=== PATIENT | female | born 1970 | race Caucasian/White ===

== ENCOUNTER 2016-04-24 23:51 | Inpatient (IN) | payer MEDICARE, MEDICAID ==
[2016-04-25] MEDS ORDERED: ZIPRASIDONE 20 MG VIAL IM STA (01:39)
--- NOTE | 2016-04-25 01:41 | ED ---
General Adult HPI - General Chief complaint: Psychiatric Symptoms Stated complaint: Mental Health-Petition Time Seen by Provider: 04/25/16 00:00 Source: patient, RN notes reviewed Mode of arrival: ambulatory Limitations: no limitations - History of Present Illness Initial comments: This is a 46-year-old female who presents to the emergency department with the police because she was making statements to her that she was suicidal. Patient refuses to tell me if she did or did not make those statements. Patient states she doesn't want to talk about it currently. Patient denies any drug use or alcohol use. Patient denies any physical complaints today. Patient states she will talk to her counselor but not to me. Patient denies headache patient denies any chest pain palpitations difficulty breathing shortness of breath. Patient denies abdominal pain patient denies nausea vomiting diarrhea. - Related Data Home Medications Medication Instructions Recorded Confirmed Albuterol Sulfate [Proair Hfa] 1 - 2 puff INHALATION Q6HR PRN 01/10/15 04/25/16 Budesonide/Formoterol Fumarate 2 puff INHALATION BID 01/10/15 04/25/16 [Symbicort 160-4.5 Mcg Inhaler] Omeprazole [PriLOSEC] 20 mg PO AC-BID 01/10/15 04/25/16 Loperamide [Imodium] 2 mg PO TID PRN 04/24/16 04/25/16 Allergies Allergy/AdvReac Type Severity Reaction Status Date / Time lorazepam [From Ativan] Allergy Hallucinati Verified 04/24/16 23:57 ons metronidazole [From Flagyl] Allergy Anaphylaxis Verified 04/24/16 23:57 Review of Systems ROS Statement: Those systems with pertinent positive or pertinent negative responses have been documented in the HPI. ROS Other: All systems not noted in ROS Statement are negative. Past Medical History Past Medical History: Asthma, Hypertension History of Any Multi-Drug Resistant Organisms: None Reported Past Surgical History: Orthopedic Surgery Additional Past Surgical History / Comment(s): nose, hand and vaginal Past Psychological History: Anxiety Smoking Status: Current every day smoker Past Alcohol Use History: None Reported Past Drug Use History: None Reported General Exam - General Exam Comments Initial Comments: GENERAL: Patient is well-developed and well-nourished. Patient is nontoxic and well- hydrated and is in no acute distress. ENT: Neck is soft and supple. No significant lymphadenopathy is noted. Oropharynx is clear. Moist mucous membranes. Neck has full range of motion without eliciting any pain. EYES: The sclera were anicteric and conjunctiva were pink and moist. Extraocular movements were intact and pupils were equal round and reactive to light. Eyelids were unremarkable. PULMONARY: Unlabored respirations. Good breath sounds bilaterally. No audible rales rhonchi or wheezing was noted. CARDIOVASCULAR: There is a regular rate and rhythm without any murmurs gallops or rubs. ABDOMEN: Soft and nontender with normal bowel sounds. No palpable organomegaly was noted. There is no palpable pulsatile mass. SKIN: Skin is clear with no lesions or rashes and otherwise unremarkable. NEUROLOGIC: Patient is alert and oriented x3. Cranial nerves II through XII are grossly intact. Motor and sensory are also intact. Normal speech, volume and content. Symmetrical smile. MUSCULOSKELETAL: Normal extremities with adequate strength and full range of motion. PSYCHIATRIC: Unable to evaluate since she will not answer my questions Limitations: no limitations Course Vital Signs 04/24/16 23:52 Temperature 99.3 F Pulse Rate 109 H Respiratory 18 Rate Blood Pressure 130/98 O2 Sat by Pulse 98 Oximetry Medical Decision Making - Lab Data Lab Results 04/25/16 04/25/16 Range/Units 00:05 00:05 Urine HCG, Qual Not Detected (Not Detectd) Urine Opiates Screen Not Detected (NotDetected) Ur Oxycodone Screen Not Detected (NotDetected) Urine Methadone Screen Not Detected (NotDetected) Ur Propoxyphene Screen Not Detected (NotDetected) Ur Barbiturates Screen Not Detected (NotDetected) U Tricyclic Antidepress Not Detected (NotDetected) Ur Phencyclidine Scrn Not Detected (NotDetected) Ur Amphetamines Screen Not Detected (NotDetected) U Methamphetamines Scrn Not Detected (NotDetected) U Benzodiazepines Scrn Not Detected (NotDetected) Urine Cocaine Screen Not Detected (NotDetected) U Marijuana (THC) Screen Not Detected (NotDetected) Disposition Clinical Impression: Suicidal ideation Disposition: ADMITTED IP TO THIS [facility] Time of Disposition: 01:41
[2016-04-25] MEDS: LORazepam 2 MG/ML SYRINGE IM STA ×2 (01:48→01:54)
[2016-04-25] MEDS ORDERED: ACETAMINOPHEN TAB 325 MG TAB PO PRN (02:50)
[2016-04-25] MEDS ORDERED: MAGNESIUM HYDROXIDE 2,400 MG/10 ML CUP PO PRN (02:50)
[2016-04-25] MEDS ORDERED: ZIPRASIDONE 20 MG VIAL IM PRN (02:50)
[2016-04-25] MEDS ORDERED: cloNIDine HCL 0.1 MG TAB PO ONE (04:10)
[2016-04-25] MEDS: ALBUTEROL INHALER 60 PUFF/8 GM INHALER INHALATION PRN ×4 (04:23→22:34)
[2016-04-25] MEDS: PANTOPRAZOLE 40 MG TABLET PO SCH ×2 (09:17→17:06)
[2016-04-25] MEDS: NICOTINE 14MG/24HR PATCH TRANSDERM SCH (09:55)
[2016-04-25] MEDS: SYMBICORT 160-4.5 MCG INHALER INHALATION SCH ×2 (12:08→17:15)
[2016-04-25] MEDS ORDERED: predniSONE 20 MG TAB PO SCH (16:00)
[2016-04-25] MEDS ORDERED: clonazePAM 0.5 MG TAB PO PRN (16:50)
[2016-04-25] MEDS: SERTRALINE 50 MG TAB PO SCH (17:06)
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
--- NOTE | 2016-04-25 18:43 | CONS ---
DATE OF CONSULTATION: The patient is a 46-year-old female admitted for suicidal ideation. ( ) Medicine was consulted regarding COPD exacerbation. The patient does smoke. The patient is significantly wheezing. The patient does use albuterol and ipratropium. Because of significant wheeze, I started on oral steroid and started her on taper. The patient also having cough with yellowish sputum production. Patient denied any fever, chills. Patient was complaining of ( ). Denied any orthopnea, PND. The patient denied any fever or chills. The patient does not appear to have any pneumonia clinically. REVIEW OF SYSTEMS: CONSTITUTIONAL: No fever, no malaise, no fatigue. HEENT: No recent visual problems or hearing problems. Denied any sore throat. CARDIOVASCULAR: No chest pain, orthopnea, PND, no palpitations, no syncope. PULMONARY: As described in history of present illness. GASTROINTESTINAL: No diarrhea, no nausea, no vomiting, no abdominal pain. Normoactive bowel sounds. NEUROLOGICAL: No headaches, no weakness, no numbness. HEMATOLOGICAL: Denies any bleeding or petechiae. GENITOURINARY: Denies any burning micturition, frequency, or urgency. MUSCULOSKELETAL/RHEUMATOLOGICAL: Denies any joint pain, swelling, or any muscle pain. ENDOCRINE: Denies any polyuria or polydipsia. The rest of the 14 point review of systems is negative. Home medications include: 1. Albuterol. 2. Budesonide. 3. Formoterol. 4. Omeprazole. 5. Loperamide. 6. Lorazepam. 7. Metronidazole. PAST MEDICAL HISTORY: Significant for COPD, hypertension, possibility of asthma and COPD, orthopedic surgery. SOCIAL HISTORY: The patient does smoke a pack per day. Denied any alcohol abuse or drug abuse. Patient does have anxiety disorder. FAMILY HISTORY: Significant for hypertension in the family. PHYSICAL EXAMINATION: Temperature 99.3, pulse of 109, respiratory rate of 18, blood pressure is 130/98, saturating at 98% on room air. GENERAL: The patient is alert and oriented x3, not in any acute distress. Well developed, well nourished. HEENT: Pupils are round and equally reacting to light. EOMI. No scleral icterus. No conjunctival pallor. Normocephalic, atraumatic. No pharyngeal erythema. No thyromegaly. CARDIOVASCULAR: S1 and S2 present. No murmurs, rubs, or gallops. PULMONARY: Patient does have significant wheezing bilaterally. No crackles are appreciated. ABDOMEN: Soft, nontender, nondistended, normoactive bowel sounds. No palpable organomegaly. MUSCULOSKELETAL: No joint swelling or deformity. EXTREMITIES: No cyanosis, clubbing, or pedal edema. NEUROLOGICAL: Gross neurological examination did not reveal any focal deficits. SKIN: No rashes. Urine drug screen is negative. No of the other lab data is available at this point of time. ASSESSMENT AND PLAN: 1. Chronic obstructive pulmonary disease with acute exacerbation. Patient is not requiring any oxygen at this point of time. Patient can stay in the psychiatric facility for that and I will start on systemic steroids and follow for one more day. If the patient improves symptomatically, we will sign off at the time. Patient is already on Symbicort. I also added ( ). Patient does have a little bit of bronchitis for which I added doxycycline for 5 days. 2. Severe depression and suicidal ideation, management as per primary services. 3. Gastroesophageal reflux disease for which Prilosec can be continued. Patient is not on any antihypertensives. I do not believe she requires any antihypertensives at this time either.
[2016-04-25] MEDS ORDERED: cloNIDine HCL 0.1 MG TAB PO STA (18:55)
[2016-04-25] MEDS: DOXYCYCLINE 50 MG CAP PO SCH (20:27)
[2016-04-26] MEDS: ALBUTEROL INHALER 60 PUFF/8 GM INHALER INHALATION PRN ×2 (06:19→21:17)
[2016-04-26] MEDS: SYMBICORT 160-4.5 MCG INHALER INHALATION SCH ×2 (09:34→21:17)
[2016-04-26] MEDS: NICOTINE 14MG/24HR PATCH TRANSDERM SCH (09:48)
[2016-04-26] MEDS: PANTOPRAZOLE 40 MG TABLET PO SCH ×4 (09:48→18:43)
[2016-04-26] MEDS: predniSONE 20 MG TAB PO SCH ×2 (09:49→09:52)
[2016-04-26] MEDS: SERTRALINE 50 MG TAB PO SCH ×3 (09:49→10:51)
[2016-04-26] MEDS: DOXYCYCLINE 50 MG CAP PO SCH ×4 (09:49→20:47)
[2016-04-26 10:55] LABS: Basophils # (A) 0.1 k/uL (0-0.2); Basophils % (A) 1 %; CH 31.3; CHCM 33.2; Eosinophils # (A) 0.2 k/uL (0-0.7); Eosinophils % (A) 3 %; HCT 42.7 % (34.0-46.0); HDW 2.07; HGB 13.7 gm/dL (11.4-16.0); Luc # (Auto) 0.15; Luc % (Auto) 2; Lymphocytes # (A) 1.6 k/uL (1.0-4.8); Lymphocytes % (A) 19 %; MCH 30.4 pg (25.0-35.0); MCHC 32.1 g/dL (31.0-37.0); MCV 94.7 fL (80.0-100.0); Mean Platelet Volume 7.8; Monocytes # (A) 0.5 k/uL (0-1.0); Monocytes % (A) 6 %; Neutrophils # (A) 5.5 k/uL (1.3-7.7); Neutrophils % (A) 69 %; RBC 4.51 m/uL (3.80-5.40); RDW 12.6 % (11.5-15.5); WBC (Perox) 8.38
[2016-04-26 11:05] LABS: ALT 43 U/L (9-52); AST 19 U/L (14-36); Alkaline Phosphatase 91 U/L (38-126); Anion Gap 11 mmol/L; Blood Urea Nitrogen 12 mg/dL (7-17); Calcium 9.9 mg/dL (8.4-10.2); Carbon Dioxide 28 mmol/L (22-30); Chloride 101 mmol/L (98-107); Glucose 100 mg/dL (74-99); Non-African American GFR(MDRD) >60 (>60 ml/min/1.73 sqM); Potassium 4.5 mmol/L (3.5-5.1); Sodium 140 mmol/L (137-145); Total Bilirubin 1.1 mg/dL (0.2-1.3)
--- NOTE | 2016-04-26 16:21 | P.PN ---
Progress Note - Text Interval history: Patient is found in her room lying in bed. She is seen with a mental health tech present. She is nonverbal during this examination. She does have her eyes opened slightly during one part of the examination then is noted to close them. Per history she was up and around at one point earlier during the day and did take her Zoloft after initially refusing it.. Per chart history did not take any Klonopin today. Mental status exam: She is found in her room lying in bed. She is seen with the mental health tech present. She is noted to have her eyes slightly opened during the exam and then closes them. Per history after I left the room she re- opened her eyes. She is nonverbal during this exam. She does not show any agitation. Plan: We'll maintain Zoloft as current and monitor for any medication side effects and monitor her response. At this time we'll put Klonopin on hold. Dr. Laughlin to initiate care this patient starting tomorrow. Patient will be encouraged to engage in the treatment milieu.
[2016-04-27 02:32] LABS: Appearance,Urine Cloudy (Clear); Bilirubin,Urine Negative (Negative); Glucose,Urine (UA) Negative (Negative); Ketones,Urine 3+ (Negative); Leukocyte Esterase,Urine Negative (Negative); Mucus,Urine Occasional /hpf; Nitrite,Urine Negative (Negative); Particle Count 8251; Protein,Urine Trace (Negative); RBC,Urine 16 /hpf (0-5); Specific Gravity,Urine 1.017 (1.001-1.035); Squamous Epithelial Cell,Urine 12 /hpf (0-4); UA Billing (MACRO vs. MICRO) MICRO; Urobilinogen,Urine <2.0 mg/dL (<2.0); WBC,Urine 1 /hpf (0-5)
[2016-04-27] MEDS: NICOTINE 14MG/24HR PATCH TRANSDERM SCH (08:28)
[2016-04-27] MEDS: PANTOPRAZOLE 40 MG TABLET PO SCH ×2 (08:28→18:36)
[2016-04-27] MEDS: DOXYCYCLINE 50 MG CAP PO SCH ×2 (08:28→21:33)
[2016-04-27] MEDS: SYMBICORT 160-4.5 MCG INHALER INHALATION SCH ×2 (08:43→21:22)
[2016-04-27] MEDS: ALBUTEROL INHALER 60 PUFF/8 GM INHALER INHALATION PRN (08:43)
[2016-04-27] MEDS: predniSONE 20 MG TAB PO SCH (09:43)
[2016-04-27] MEDS: SERTRALINE 50 MG TAB PO SCH (09:44)
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
[2016-04-27] MEDS ORDERED: METOPROLOL TARTRATE 25 MG TAB PO STA ×2 (20:18→21:42)
[2016-04-27] MEDS ORDERED: amLODIPine 5 MG TAB PO STA (20:18)
[2016-04-27 21:08] LABS: Appearance,Urine Cloudy (Clear); Bilirubin,Urine Negative (Negative); Glucose,Urine (UA) Negative (Negative); Ketones,Urine Negative (Negative); Leukocyte Esterase,Urine Negative (Negative); Mucus,Urine Rare /hpf; Nitrite,Urine Negative (Negative); Particle Count 5840; Protein,Urine Negative (Negative); RBC,Urine 7 /hpf (0-5); Specific Gravity,Urine 1.011 (1.001-1.035); Squamous Epithelial Cell,Urine 22 /hpf (0-4); UA Billing (MACRO vs. MICRO) MICRO; Urobilinogen,Urine <2.0 mg/dL (<2.0); WBC,Urine 1 /hpf (0-5)
--- NOTE | 2016-04-27 21:16 | PN ---
I evaluated the patient today because of her significant wheezing on my initial evaluation secondary to COPD exacerbation. Patient has significant improved symptoms of shortness of breath, and patient's wheezing has completely resolved. There were concerns about elevated blood pressures on and off. This is related to anxiety, I do not believe any intervention is necessary at this point of time. I do not recommend any p.r.n. antihypertensives or any scheduled antihypertensives at this point of time. Patient's blood pressure needs to be evaluated appropriately. REVIEW OF SYSTEMS: CARDIOVASCULAR: No chest pain, no orthopnea, no PND, no palpitations. PULMONARY: Denied any shortness of breath. No cough or hemoptysis. GASTROINTESTINAL: No diarrhea, nausea or vomiting. No abdominal pain. Normoactive bowel sounds. NEUROLOGIC: No headaches, no weakness, no numbness. Medications were reviewed. PHYSICAL EXAMINATION: VITAL SIGNS: Temperature 98.2, pulse of 80, respiratory rate of 16. Blood pressure is 161/81, but patient's lowest blood pressure was in the 140s yesterday. GENERAL: The patient is alert and oriented x3, not in any acute distress. Well developed, well nourished. HEENT: Pupils are round and equally reacting to light. EOMI. No scleral icterus. No conjunctival pallor. Normocephalic, atraumatic. No pharyngeal erythema. No thyromegaly. CARDIOVASCULAR: S1 and S2 present. No murmurs, rubs, or gallops. PULMONARY: Chest is clear to auscultation, no wheezing or crackles. ABDOMEN: Soft, nontender, nondistended, normoactive bowel sounds. No palpable organomegaly. EXTREMITIES: No cyanosis, clubbing, or pedal edema. NEUROLOGICAL: Gross neurological examination did not reveal any focal deficits. SKIN: No rashes ASSESSMENT AND PLAN: 1. Chronic obstructive pulmonary disease with minimal exacerbation; improved symptoms. Continue with systemic steroids, inhalational treatments. Follow the taper I ordered. 2. Tracheobronchitis; improved symptoms of tracheobronchitis as well. 3. Minimally elevated blood pressures, which does not warrant any scheduled or p.r.n. antihypertensives, secondary to anxiety. 4. Severe depression and suicidal ideation. 5. Gastroesophageal reflux disease, for which Prilosec can be continued. [facility]
[2016-04-27] MEDS ORDERED: ALPRAZolam 0.5 MG TAB PO STA (21:50)
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
[2016-04-28] MEDS: ALBUTEROL INHALER 60 PUFF/8 GM INHALER INHALATION PRN ×2 (08:58→20:48)
[2016-04-28] MEDS: SYMBICORT 160-4.5 MCG INHALER INHALATION SCH ×2 (08:58→20:48)
[2016-04-28] MEDS: NICOTINE 14MG/24HR PATCH TRANSDERM SCH (09:23)
[2016-04-28] MEDS: predniSONE 20 MG TAB PO SCH (09:24)
[2016-04-28] MEDS: PANTOPRAZOLE 40 MG TABLET PO SCH ×2 (09:24→17:11)
[2016-04-28] MEDS: DOXYCYCLINE 50 MG CAP PO SCH ×2 (09:24→20:08)
[2016-04-28] MEDS: SERTRALINE 50 MG TAB PO SCH (09:24)
[2016-04-28] MEDS: METOPROLOL TARTRATE 25 MG TAB PO SCH ×2 (10:19→20:08)
[2016-04-28] MEDS: MAG HYDROX/AL HYDROX/SIMETH 30 ML CUP PO PRN (22:09)
[2016-04-29] MEDS: NICOTINE 14MG/24HR PATCH TRANSDERM SCH (08:24)
[2016-04-29] MEDS: predniSONE 10 MG TAB PO SCH (08:25)
[2016-04-29] MEDS: METOPROLOL TARTRATE 25 MG TAB PO SCH ×2 (08:25→20:28)
[2016-04-29] MEDS: PANTOPRAZOLE 40 MG TABLET PO SCH ×2 (08:26→16:33)
[2016-04-29] MEDS: DOXYCYCLINE 50 MG CAP PO SCH ×2 (08:27→20:27)
[2016-04-29] MEDS: SERTRALINE 50 MG TAB PO SCH (08:30)
[2016-04-29] MEDS: SYMBICORT 160-4.5 MCG INHALER INHALATION SCH ×2 (09:22→21:38)
--- NOTE | 2016-04-29 11:28 | P.PN ---
Progress Note - Text Interval history: The patient is found in her room she follows me to an interview room. She reports that she would like to be discharged as soon as possible. She reports that her mood is improved she is not feeling suicidal. Staff report that her participation in group has been limited. We have had a suspicion that she may be experiencing some symptoms of psychosis but she has been fairly guarded and not discussing them. She does state that she feels that people here don't like her because she is not a nice person. She has not been demonstrating any agitated behavior. She does have a family meeting plan for this afternoon with her . Her has informed social work already that he does not feel that the patient is at baseline. The patient has complied with the Zoloft today. We discussed possibly augmenting it with Abilify but she does not wish to pursue other medication. Mental status exam: The patient is seated calmly in the chair eye contact is appropriate she has patches of alopecia bilaterally on her head. She reports her mood is "fine" she maintains a bland affect. Speech is fluent mainly responsive to questions asked. There is no pressured speech. She reports no suicidal or homicidal ideation. She does present guarded. Insight and judgment limited. There may be evidence of psychosis, paranoid nature. There is no psychomotor agitation or slowing. There is no verbal or physical aggressiveness. She is easily directable. Cognitively she does have a history of a learning disorder. She is oriented to person place day of the week and year. She is able to identify that this is the first month of the year but cannot name the first month of the year. She was able to register 3 words and repeat them back after delay of approximately 3-4 minutes she spontaneously recalled 1 of those words he got another with a verbal cue and was able to recall the third word with multiple choice cue. She has a diminished ability to abstract when given proverbs and her fund of knowledge is limited. She was unsuccessful in naming 5 major cities [place]. Plan: The patient will continue on the Zoloft we may need to augment with Abilify. She is not willing to pursue another medication at this time. We will await the results of her family meeting. We will monitor her for safety and encourage her participation in the milieu. Vital signs reviewed. She is not appropriate for discharge to the mental health unit today.
[2016-04-29] MEDS ORDERED: ALPRAZolam 0.5 MG TAB PO STA (20:36)
[2016-04-29] MEDS: ALBUTEROL INHALER 60 PUFF/8 GM INHALER INHALATION PRN (21:38)
[2016-04-30] MEDS: DOXYCYCLINE 50 MG CAP PO SCH ×2 (08:51→20:53)
[2016-04-30] MEDS: METOPROLOL TARTRATE 25 MG TAB PO SCH ×2 (08:51→20:53)
[2016-04-30] MEDS: PANTOPRAZOLE 40 MG TABLET PO SCH ×2 (08:51→16:50)
[2016-04-30] MEDS: NICOTINE 14MG/24HR PATCH TRANSDERM SCH (08:52)
[2016-04-30] MEDS: predniSONE 10 MG TAB PO SCH (08:52)
[2016-04-30] MEDS: SERTRALINE 50 MG TAB PO SCH (08:52)
[2016-04-30] MEDS: ALBUTEROL INHALER 60 PUFF/8 GM INHALER INHALATION PRN ×2 (10:00→22:04)
[2016-04-30] MEDS: SYMBICORT 160-4.5 MCG INHALER INHALATION SCH ×2 (10:01→22:06)
--- NOTE | 2016-04-30 10:20 | P.PN ---
Progress Note - Text Interval history: The patient is found in the hallway she follows me to an interview room. She states that she did attend some groups yesterday and found them beneficial. The family meeting was held involving her and those notes were reviewed from social work. Her indicated that the patient still was not ready for discharge as she did not appear to be at baseline function. He expressed concern regarding her depressed mood and suicidal thoughts. The patient seemed to have a different perception of the meeting and felt that she was ready to go home and that things will be fine and they will attend marital counseling. Mental status exam: The patient is alert she seated calmly she tolerates the interview briefly and then asked to leave. Eye contact is staring in nature. She has visible patches of alopecia on her head bilaterally. She reports her mood is improving affect is constricted. She is endorsing no hallucinations or specific delusions however some delusional thought me persist. Speech is fluent mainly responsive to questions asked. Thought process is linear in that only brief answers are provided. Again she does appear guarded. Insight and judgment limited. She is demonstrating no verbal or physical aggressiveness. She is endorsing no acute suicidal ideation but it does appear she is potentially underreporting symptoms to facilitate a discharge. Plan: The patient will continue on the Zoloft as written we will consider titrating the dose. Again we will consider augmentation with Abilify if needed. We will continue to monitor her for safety and encourage her participation in the milieu. Vital signs reviewed. She requires continued inpatient psychiatric care at this time for safety concern.
[2016-04-30] MEDS ORDERED: ALPRAZolam 0.5 MG TAB PO STA (22:01)
[2016-05-01] MEDS: ALBUTEROL INHALER 60 PUFF/8 GM INHALER INHALATION PRN ×2 (07:57→20:42)
[2016-05-01] MEDS: SYMBICORT 160-4.5 MCG INHALER INHALATION SCH ×2 (07:57→20:42)
[2016-05-01] MEDS: NICOTINE 14MG/24HR PATCH TRANSDERM SCH (09:32)
[2016-05-01] MEDS: PANTOPRAZOLE 40 MG TABLET PO SCH ×2 (09:32→16:54)
[2016-05-01] MEDS: SERTRALINE 50 MG TAB PO SCH (09:33)
[2016-05-01] MEDS: METOPROLOL TARTRATE 25 MG TAB PO SCH ×2 (09:33→21:18)
[2016-05-01] MEDS: predniSONE 10 MG TAB PO SCH (09:34)
--- NOTE | 2016-05-01 09:51 | P.PN ---
Progress Note - Text Interval history: The patient is found in the hallway she follows me to an interview room. The patient reports that she is fine and would like to be discharged. She continues to appear strange or bizarre to staff at times. There continues to be times where we feel she is experiencing symptoms of psychosis but she has not reporting those. I do feel she is underreporting to facilitate a discharge. While here on the mental health unit she has reported that she feels she is , and has also reported that everybody here doesn' t like her for unspecified reasons. We discussed maintain in the Zoloft and augmenting with Abilify. Mental status exam: The patient is seated calmly hygiene grooming are fair. Eye contact can be staring at time and appears blank. She has noticeable patches of alopecia bilaterally on her head. She continues to lack insight into her presenting symptoms her current affect and behavior. Judgment appears impaired. It does appear that she may be experiencing symptoms of psychosis that she has not reporting. There appears to be some very mild thought blocking at times. She demonstrates no verbal or physical aggressiveness. She expresses concerned about not being discharged and then other times appears apathetic. Plan: The patient will continue on the Zoloft we will augment with Abilify 2 mg daily. We will monitor her for safety and symptoms of psychosis. Vital signs reviewed. She is encouraged to attend groups.
[2016-05-01] MEDS: ARIPiprazole 2 MG TAB PO SCH (11:16)
[2016-05-02] MEDS: ARIPiprazole 2 MG TAB PO SCH (08:06)
[2016-05-02] MEDS: PANTOPRAZOLE 40 MG TABLET PO SCH (08:06)
[2016-05-02] MEDS: SERTRALINE 50 MG TAB PO SCH (08:06)
[2016-05-02] MEDS: METOPROLOL TARTRATE 25 MG TAB PO SCH ×2 (08:07→20:37)
[2016-05-02] MEDS: NICOTINE 14MG/24HR PATCH TRANSDERM SCH (08:07)
[2016-05-02] MEDS: SYMBICORT 160-4.5 MCG INHALER INHALATION SCH ×2 (09:55→15:20)
[2016-05-02] MEDS: MAG HYDROX/AL HYDROX/SIMETH 30 ML CUP PO PRN (10:24)
--- NOTE | 2016-05-02 11:04 | P.PN ---
Progress Note - Text Interval history: The patient is found in her room she follows me to an interview room. She feels her mood is improving but expresses concern about her medication. We again discussed the purpose of the Zoloft and Abilify. We reviewed potential benefits and side effects of both medications. We reviewed the albuterol protonic's and Symbicort. She does not feel that the Protonix is as effective as her Prilosec. We discussed making a change to that medication. She reports daily phone conversations with her and she hopes to reconcile with him return home and engage in outpatient marital counseling. It appears that she has complied with the Zoloft in the Abilify. Mental status exam: The patient is seated calmly eye contact is appropriate. She expresses concern regarding her medications but does seem to respond at least briefly to education and reassurance. Affect is typically blunted she demonstrated some mild range today. Again she endorses no symptoms as she is underreporting and appears guarded. She demonstrates no verbal or physical aggressiveness. She is isolating in her room versus attending groups so far this morning. Insight and judgment limited. Plan: The patient will continue on the Zoloft and Abilify as written. We will discontinue the Protonix and initiate Pepcid 20 mg twice daily for tomorrow. We will monitor her for safety, provide reality orientation when possible, vital signs reviewed. She requires continued psychiatric hospitalization. She plans on having her visit over the weekend we will look for his input regarding those visits to discuss her current status versus baseline function.
[2016-05-02] MEDS: ALBUTEROL INHALER 60 PUFF/8 GM INHALER INHALATION PRN (15:20)
[2016-05-03] MEDS: MAG HYDROX/AL HYDROX/SIMETH 30 ML CUP PO PRN ×2 (00:41→09:16)
[2016-05-03] MEDS ORDERED: cloNIDine HCL 0.1 MG TAB PO STA (00:47)
[2016-05-03] MEDS ORDERED: ALPRAZolam 0.5 MG TAB PO STA (00:48)
[2016-05-03 00:50] VITALS: TEMP 97.9
[2016-05-03] MEDS: METOPROLOL TARTRATE 25 MG TAB PO SCH ×2 (09:11→21:39)
[2016-05-03] MEDS: ARIPiprazole 2 MG TAB PO SCH (09:11)
[2016-05-03] MEDS: NICOTINE 14MG/24HR PATCH TRANSDERM SCH (09:12)
[2016-05-03] MEDS: FAMOTIDINE 20 MG TAB PO SCH ×3 (09:12→21:39)
[2016-05-03] MEDS: SERTRALINE 50 MG TAB PO SCH (09:13)
[2016-05-03] MEDS: ALBUTEROL INHALER 60 PUFF/8 GM INHALER INHALATION PRN ×2 (09:27→14:42)
[2016-05-03] MEDS: SYMBICORT 160-4.5 MCG INHALER INHALATION SCH ×3 (09:27→22:12)
--- NOTE | 2016-05-03 10:41 | P.PN ---
Progress Note - Text Interval history: The patient is found in her room she follows me to an interview room. She voices some concern regarding her blood pressure elevating. We did give her Xanax and Catapres. We will contact the medical team regarding any further recommendations for an antihypertensive agent. She is on metoprolol. She states that her mood is improving. She had a good visit with her yesterday. She has been complying with the Zoloft and Abilify. Mental status exam: The patient is alert she seated calmly in her chair eye contact is appropriate. She reports her moods improving her affect was more appropriately animated. There was no thought blocking. She is endorsing no homicidal thoughts she is reporting no hallucinations. Insight and judgment appear to be slowly improving as she has been complying with medication recommendations. She demonstrates no verbal or physical aggressiveness. She remains oriented to person place and date. Hygiene grooming adequate. Plan: The patient will continue on her current medication we will have social work contact her regarding his most recent visit. We will continue to monitor for safety and encourage her participation in the milieu.
[2016-05-04] MEDS: MAG HYDROX/AL HYDROX/SIMETH 30 ML CUP PO PRN (07:48)
[2016-05-04] MEDS: FAMOTIDINE 20 MG TAB PO SCH (08:50)
[2016-05-04] MEDS: ARIPiprazole 2 MG TAB PO SCH (08:50)
[2016-05-04] MEDS: SERTRALINE 50 MG TAB PO SCH (08:50)
[2016-05-04] MEDS: NICOTINE 14MG/24HR PATCH TRANSDERM SCH (08:50)
[2016-05-04] MEDS: METOPROLOL TARTRATE 25 MG TAB PO SCH (08:51)
[2016-05-04 08:56] VITALS: BP 136/87; PULSE 73; RESP 18
[2016-05-04] MEDS: SYMBICORT 160-4.5 MCG INHALER INHALATION SCH (09:06)
[2016-05-04] MEDS: ALBUTEROL INHALER 60 PUFF/8 GM INHALER INHALATION PRN (09:06)
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
== END 2016-05-04 11:03 | disposition home or self-care (01) | DRG 885 ==
LOC: EC 23:51 → 3MHU 04-25 02:49
PROVIDERS: ADMIT Psychiatry & Neurology Psychiatry; ATTEND Psychiatry & Neurology Psychiatry
DX: F33.3 Major depressive disorder, recurrent, severe with psychotic symptoms (principal); R45.851 Suicidal ideations; J44.0 Chronic obstructive pulmonary disease with (acute) lower respiratory infection; J44.1 Chronic obstructive pulmonary disease with (acute) exacerbation; J20.9 Acute bronchitis, unspecified; I10 Essential (primary) hypertension; F41.1 Generalized anxiety disorder; F17.210 Nicotine dependence, cigarettes, uncomplicated; J45.909 Unspecified asthma, uncomplicated; K21.9 Gastro-esophageal reflux disease without esophagitis; Z81.8 Family history of other mental and behavioral disorders; Z82.49 Family history of ischemic heart disease and other diseases of the circulatory system; Z91.5 Personal history of self-harm; Z79.899 Other long term (current) drug therapy
CPT/HCPCS: 80053; 80306; 81001; 81025; 82075; 84443; 84484; 85025; 93005; 94640; 96372; 99285

== ENCOUNTER 2016-11-17 18:10 | Emergency (ER) | payer MEDICARE, OTHER ==
[2016-11-17 18:14] VITALS: BP 159/85; PULSE 84; RESP 18; TEMP 97.3
--- NOTE | 2016-11-17 18:38 | ED ---
ENT HPI - General Chief complaint: ENT Stated complaint: Sore throat Time Seen by Provider: 11/17/16 18:15 Source: patient, RN notes reviewed Mode of arrival: ambulatory Limitations: no limitations - History of Present Illness Initial comments: Patient is a 46 female presents emergency room for evaluation of throat pain. Patient states she had thrush about a month ago and was prescribed nystatin should medication about a week ago and her symptoms have returned. Patient states that she does use Spiriva daily. Patient states she has white spots on the roof of her mouth and over her tongue. Patient states it hurts to swallow. Patient denies fevers or chills. Patient has nausea vomiting. Patient is headache or dizziness. Patient denies trouble swallowing. - Related Data Home Medications Medication Instructions Recorded Confirmed Albuterol Sulfate [Proair Hfa] 1 - 2 puff INHALATION RT-Q6H PRN 01/10/15 Budesonide/Formoterol Fumarate 2 puff INHALATION RT-BID 01/10/15 11/17/16 [Symbicort 160-4.5 Mcg Inhaler] Omeprazole [PriLOSEC] 20 mg PO AC-BID PRN 01/10/15 11/17/16 Albuterol Nebulized [Ventolin 2.5 mg INHALATION RT-BID PRN 11/17/16 11/17/16 Nebulized] Ascorbic Acid [Vitamin C] 500 mg PO DAILY 11/17/16 11/17/16 Multivitamins, Thera [Multivitamin 1 tab PO DAILY 11/17/16 11/17/16 (formulary)] Previous Rx's Medication Instructions Recorded Nystatin 100,000 Unit/ml Susp 5 ml PO QID 10 Days 11/17/16 [Mycostatin Oral Susp] Allergies Allergy/AdvReac Type Severity Reaction Status Date / Time metronidazole [From Flagyl] Allergy Rash/Hives Verified 11/17/16 18:30 amlodipine AdvReac Rapid Verified 11/17/16 18:30 Heart Rate lorazepam [From Ativan] AdvReac Suicidal Verified 11/17/16 18:30 Thoughts Review of Systems ROS Statement: Those systems with pertinent positive or pertinent negative responses have been documented in the HPI. ROS Other: All systems not noted in ROS Statement are negative. Past Medical History Past Medical History: Asthma, Hypertension History of Any Multi-Drug Resistant Organisms: None Reported Past Surgical History: Orthopedic Surgery Additional Past Surgical History / Comment(s): nose, hand and vaginal Past Psychological History: Anxiety Smoking Status: Current every day smoker Past Alcohol Use History: None Reported Past Drug Use History: None Reported General Exam - General Exam Comments Initial Comments: Sitting in exam room, no distress. Limitations: no limitations General appearance: alert, in no apparent distress Head exam: Present: atraumatic, normocephalic, normal inspection Eye exam: Present: normal appearance Expanded Mouth exam: Present: other (white plaques over hard pallet and tongue) Neck exam: Present: normal inspection Respiratory exam: Absent: respiratory distress Extremities exam: Present: normal inspection Back exam: Present: normal inspection Neurological exam: Present: alert, oriented X3 Psychiatric exam: Present: normal affect, normal mood Skin exam: Present: warm, dry, intact, normal color. Absent: rash Course Vital Signs 11/17/16 18:11 Temperature 97.3 F L Pulse Rate 84 Respiratory 18 Rate Blood Pressure 159/85 O2 Sat by Pulse 99 Oximetry Medical Decision Making - Medical Decision Making Patient is a 46-year-old female presents to the emergency room for evaluation of throat pain. Patient states she has a history of oral thrush. Symptoms consistent with oral candidiasis. Will send patient home with swish and swallow nystatin suspension. Advised patient to follow-up with primary care provider for reevaluation. Patient states she understands everything that was discussed with her. Return parameters discussed. Disposition Clinical Impression: Oral candidiasis Disposition: HOME SELF-CARE Condition: Good Instructions: Oral Candidiasis (ED) Additional Instructions: Take medications as directed. Please follow up with primary care provider in 1- 2 days. If any new symptom arises or symptoms worsen, return to ER as soon as possible. Prescriptions: Nystatin 100,000 Unit/ml Susp [Mycostatin Oral Susp] 5 ml PO QID 10 Days Referrals: Antonina Chapin MD [Primary Care Provider] - 1-2 days Time of Disposition: 18:34
== END 2016-11-17 18:59 | disposition home or self-care (01) ==
LOC: EC 18:10
DX: B37.0 Candidal stomatitis (principal); J45.909 Unspecified asthma, uncomplicated; F17.200 Nicotine dependence, unspecified, uncomplicated; Z88.1 Allergy status to other antibiotic agents; Z88.8 Allergy status to other drugs, medicaments and biological substances; Z79.51 Long term (current) use of inhaled steroids; Z79.899 Other long term (current) drug therapy
CPT/HCPCS: 99282

== ENCOUNTER 2017-01-17 12:59 | Emergency (ER) | payer MEDICARE, OTHER ==
[2017-01-17] MEDS ORDERED: HYDROmorphone 1 MG/ML 1 ML SYRINGE IVP STA (14:51)
[2017-01-17] MEDS ORDERED: ONDANSETRON 4 MG/2 ML VIAL IVP STA (14:51)
[2017-01-17] MEDS ORDERED: SODIUM CHLORIDE 0.9% 1,000 ML IV STA (14:51)
--- NOTE | 2017-01-17 14:55 | ED ---
General Adult HPI - General Chief complaint: Urogenital Stated complaint: Abd Pain, Blood in Urine Time Seen by Provider: 01/17/17 14:40 Source: patient, RN notes reviewed Mode of arrival: ambulatory Limitations: no limitations - History of Present Illness Initial comments: 47-year-old female presents to the emergency department with a chief complaint of blood in the urine. She has been having pain at her urethra site for the past 2 days but today she woke up with blood in the urine. She does admit to history of UTIs. She also having some left-sided flank pain with this. Patient states that she's had nausea without vomiting. Patient denies any high fevers. Patient states she does not have a history of kidney stones however her mother does. Patient was concerned due to her symptoms so she thought that she should be evaluated.Patient denies any recent fever, chills, shortness of breath, chest pain, back pain, vomiting, numbness or tingling, constipation or diarrhea, headaches or visual changes, or any other current symptoms. - Related Data Home Medications Medication Instructions Recorded Confirmed Albuterol Sulfate [Proair Hfa] 1 - 2 puff INHALATION RT-Q6H PRN 01/10/15 Budesonide/Formoterol Fumarate 2 puff INHALATION RT-BID 01/10/15 01/17/17 [Symbicort 160-4.5 Mcg Inhaler] Omeprazole [PriLOSEC] 20 mg PO DAILY PRN 01/10/15 01/17/17 Albuterol Nebulized [Ventolin 2.5 mg INHALATION RT-BID PRN 11/17/16 01/17/17 Nebulized] Cetirizine HCl [Zyrtec] 10 mg PO DAILY PRN 01/17/17 01/17/17 Ranitidine HCl [Zantac] 150 mg PO BID PRN 01/17/17 01/17/17 Previous Rx's Medication Instructions Recorded Ciprofloxacin HCl [Cipro] 500 mg PO Q12HR 7 Days 01/17/17 Phenazopyridine [Pyridium] 100 mg PO TID #6 tablet 01/17/17 Allergies Allergy/AdvReac Type Severity Reaction Status Date / Time metronidazole [From Flagyl] Allergy Rash/Hives Verified 01/17/17 15:03 amlodipine AdvReac Rapid Verified 01/17/17 15:03 Heart Rate lorazepam [From Ativan] AdvReac Suicidal Verified 01/17/17 15:03 Thoughts Review of Systems ROS Statement: Those systems with pertinent positive or pertinent negative responses have been documented in the HPI. ROS Other: All systems not noted in ROS Statement are negative. Past Medical History Past Medical History: Asthma, Hypertension History of Any Multi-Drug Resistant Organisms: None Reported Past Surgical History: Orthopedic Surgery Additional Past Surgical History / Comment(s): nose, hand and vaginal Past Psychological History: Anxiety Smoking Status: Current every day smoker Past Alcohol Use History: None Reported Past Drug Use History: None Reported General Exam - General Exam Comments Initial Comments: General: The patient is awake and alert, in no distress, and does not appear acutely ill. Eye: Pupils are equal, round and reactive to light, extra-ocular movements are intact; there is normal conjunctiva bilaterally. No signs of icterus. Ears, nose, mouth and throat: There are moist mucous membranes and no oral lesions. Neck: The neck is supple, there is no tenderness. Cardiovascular: There is a regular rate and rhythm. No murmur, rub or gallop is appreciated. Respiratory: Lungs are clear to auscultation, respirations are non-labored, breath sounds are equal. No wheezes, stridor, rales, or rhonchi. Gastrointestinal: Soft, non-distended, left-sided abdominal tenderness without masses or organomegaly noted. There is no rebound or guarding present. No CVA tenderness. Bowel sounds are unremarkable. Back: There is no tenderness to palpation in the midline. There is no obvious deformity. No rashes noted. Musculoskeletal: Normal ROM, no tenderness, There is no pedal edema. There is no calf tenderness or swelling. Sensation intact. Pulses equal bilaterally 2+. Neurological: CN II-XII intact, There are no obvious motor or sensory deficits. Coordination appears grossly intact. Speech is normal. Skin: Skin is warm and dry and no rashes or lesions are noted. Psychiatric: Cooperative, appropriate mood & affect, normal judgment. Limitations: no limitations Course Vital Signs 01/17/17 13:15 Temperature 98 F Pulse Rate 89 Respiratory 20 Rate Blood Pressure 210/111 O2 Sat by Pulse 98 Oximetry Medical Decision Making - Medical Decision Making 47-year-old female presents for left-sided abdominal pain with blood in the urine. At this time patient's lab work is reviewed and reviewed as well as CAT scan. We did inform her of the left ovarian cyst. We did discuss follow-up with her doctor we will start her antibiotics. Patient all questions have been answered. This time we will discharge the patient. - Lab Data Result diagrams: 01/17/17 15:12 01/17/17 15:12 Lab Results 01/17/17 01/17/17 01/17/17 Range/Units 15:12 15:12 15:12 WBC 11.1 H (3.8-10.6) k/uL RBC 4.63 (3.80-5.40) m/uL Hgb 14.5 (11.4-16.0) gm/dL Hct 44.0 (34.0-46.0) % MCV 95.0 (80.0-100.0) fL MCH 31.3 (25.0-35.0) pg MCHC 32.9 (31.0-37.0) g/dL RDW 13.6 (11.5-15.5) % Plt Count 295 (150-450) k/uL Neutrophils % 74 % Lymphocytes % 17 % Monocytes % 4 % Eosinophils % 3 % Basophils % 1 % Neutrophils # 8.2 H (1.3-7.7) k/uL Lymphocytes # 1.9 (1.0-4.8) k/uL Monocytes # 0.4 (0-1.0) k/uL Eosinophils # 0.4 (0-0.7) k/uL Basophils # 0.1 (0-0.2) k/uL Sodium 140 (137-145) mmol/L Potassium 3.9 (3.5-5.1) mmol/L Chloride 105 (98-107) mmol/L Carbon Dioxide 26 (22-30) mmol/L Anion Gap 9 mmol/L BUN 7 (7-17) mg/dL Creatinine 0.60 (0.52-1.04) mg/dL Est GFR (MDRD) Af Amer >60 (>60 ml/min/1.73 sqM) Est GFR (MDRD) Non-Af >60 (>60 ml/min/1.73 sqM) Glucose 82 (74-99) mg/dL Calcium 9.5 (8.4-10.2) mg/dL Total Bilirubin 0.4 (0.2-1.3) mg/dL AST 16 (14-36) U/L ALT 35 (9-52) U/L Alkaline Phosphatase 75 (38-126) U/L Total Protein 7.3 (6.3-8.2) g/dL Albumin 4.3 (3.5-5.0) g/dL Amylase 40 (30-110) U/L Lipase 41 (23-300) U/L Urine Color Colorless Urine Appearance Clear (Clear) Urine pH 6.5 (5.0-8.0) Ur Specific Clyde 1.001 (1.001-1.035) Urine Protein Negative (Negative) Urine Glucose (UA) Negative (Negative) Urine Ketones Negative (Negative) Urine Blood Moderate H (Negative) Urine Nitrite Negative (Negative) Urine Bilirubin Negative (Negative) Urine Urobilinogen <2.0 (<2.0) mg/dL Ur Leukocyte Esterase Negative (Negative) Urine RBC 1 (0-5) /hpf Urine WBC 2 (0-5) /hpf Ur Squamous Epith Cells 1 (0-4) /hpf Urine Bacteria Rare H (None) /hpf - Radiology Data Radiology results: report reviewed, image reviewed Disposition Clinical Impression: Urinary tract infection, Left ovarian cyst Disposition: HOME SELF-CARE Condition: Stable Instructions: Urinary Tract Infection in Women (ED) Additional Instructions: Please use medication as discussed. Please follow up with family doctor if symptoms have not improved over the next two days. Please return to the emergency room if your symptoms increase or worsen or for any other concerns. Prescriptions: Ciprofloxacin HCl [Cipro] 500 mg PO Q12HR 7 Days Phenazopyridine [Pyridium] 100 mg PO TID #6 tablet Referrals: Antonina Chapin MD [Primary Care Provider] - 1-2 days Time of Disposition: 16:10
[2017-01-17 15:24] LABS: Basophils # (A) 0.1 k/uL (0-0.2); Basophils % (A) 1 %; CH 31.8; CHCM 33.7; Eosinophils # (A) 0.4 k/uL (0-0.7); Eosinophils % (A) 3 %; HDW 2.33; HGB 14.5 gm/dL (11.4-16.0); Luc # (Auto) 0.14; Luc % (Auto) 1; Lymphocytes # (A) 1.9 k/uL (1.0-4.8); Lymphocytes % (A) 17 %; MCH 31.3 pg (25.0-35.0); MCHC 32.9 g/dL (31.0-37.0); Mean Platelet Volume 7.8; Monocytes # (A) 0.4 k/uL (0-1.0); Monocytes % (A) 4 %; Neutrophils # (A) 8.2 k/uL (1.3-7.7); Neutrophils % (A) 74 %; RBC 4.63 m/uL (3.80-5.40); RDW 13.6 % (11.5-15.5); WBC 11.1 k/uL (3.8-10.6); WBC (Perox) 11.06
[2017-01-17 15:28] LABS: Appearance,Urine Clear (Clear); Bacteria,Urine Rare /hpf; Bilirubin,Urine Negative (Negative); Glucose,Urine (UA) Negative (Negative); Ketones,Urine Negative (Negative); Leukocyte Esterase,Urine Negative (Negative); Nitrite,Urine Negative (Negative); PH, Urine 6.5 (5.0-8.0); Particle Count 701; Protein,Urine Negative (Negative); RBC,Urine 1 /hpf (0-5); Specific Gravity,Urine 1.001 (1.001-1.035); Squamous Epithelial Cell,Urine 1 /hpf (0-4); UA Billing (MACRO vs. MICRO) MICRO; Urobilinogen,Urine <2.0 mg/dL (<2.0); WBC,Urine 2 /hpf (0-5)
[2017-01-17 15:37] LABS: ALT 35 U/L (9-52); AST 16 U/L (14-36); Alkaline Phosphatase 75 U/L (38-126); Amylase 40 U/L (30-110); Anion Gap 9 mmol/L; Blood Urea Nitrogen 7 mg/dL (7-17); Calcium 9.5 mg/dL (8.4-10.2); Carbon Dioxide 26 mmol/L (22-30); Chloride 105 mmol/L (98-107); Glucose 82 mg/dL (74-99); Non-African American GFR(MDRD) >60 (>60 ml/min/1.73 sqM); Potassium 3.9 mmol/L (3.5-5.1); Sodium 140 mmol/L (137-145); Total Bilirubin 0.4 mg/dL (0.2-1.3); Total Protein 7.3 g/dL (6.3-8.2)
--- NOTE | 2017-01-17 15:58 | CT ---
EXAMINATION TYPE: CT abdomen pelvis wo con DATE OF EXAM: 01/17/2017 COMPARISON: NONE HISTORY: Patient complains of left flank pain and gross hematuria. CT DLP: 485.8 mGycm Automated exposure control for dose reduction was used. TECHNIQUE: Helical acquisition of images was performed from the lung bases through the pelvis. Lack of intravenous and oral contrast limits evaluation of the hollow and solid viscera. FINDINGS: LUNG BASES: Single bleb is noted within the left lung base as well as small Bochdalek hernia. LIVER/GB: Unremarkable unenhanced morphology. No evidence of radiopaque cholelithiasis. PANCREAS: Unremarkable unenhanced morphology without evidence of ductal dilatation. SPLEEN: Small splenule, otherwise unremarkable. ADRENALS: No significant abnormality is seen. KIDNEYS: Exophytic left mid pole 7 mm posterior renal cyst. No evidence of nephrolithiasis, ureteral calculi, or hydronephrosis. No urinary bladder calculi. FREE AIR: No free air is visualized RETROPERITONEAL ADENOPATHY: None visualized REPRODUCTIVE ORGANS: 3.0 cm complex fluid attenuated cystic left adnexal lesion is present. URINARY BLADDER: No significant abnormality is seen. PELVIC ADENOPATHY: None visualized. OSSEOUS STRUCTURES: No significant abnormality is seen. BOWEL: No significant abnormality is seen. Appendix is air-filled and within normal limits. OTHER: Abdominal aorta is of normal course and caliber with mild calcific atheromatous changes. IMPRESSION: 1. NO EVIDENCE OF HYDRONEPHROSIS OR NEPHROLITHIASIS. NO EVIDENCE OF OBSTRUCTIVE UROPATHY. 2. MINIMALLY COMPLEX FLUID ATTENUATED 3.0 CM LEFT ADNEXAL LESION MOST LIKELY REPRESENTS A HEMORRHAGIC LEFT OVARIAN CYST.
[2017-01-17 16:11] VITALS: BP 178/98; PULSE 63; RESP 14; TEMP 97.3
== END 2017-01-17 16:23 | disposition home or self-care (01) ==
LOC: EC 12:59
DX: N39.0 Urinary tract infection, site not specified (principal); N83.202 Unspecified ovarian cyst, left side; R11.0 Nausea; J45.909 Unspecified asthma, uncomplicated; F17.200 Nicotine dependence, unspecified, uncomplicated; Z88.1 Allergy status to other antibiotic agents; Z88.8 Allergy status to other drugs, medicaments and biological substances; Z79.51 Long term (current) use of inhaled steroids
CPT/HCPCS: 99284 ×2; 96374 ×2; 96375 ×2; 96361 ×2; 36415; 80053; 82150; 83690; 85025; 81001; 87086; 87077; 87186; 74176; J2405; J1170

== ENCOUNTER → 2019-10-16 | Outpatient (CLI) | payer MEDICARE ==
[2019-10-17 05:05] LABS: Hepatitis A Antibody IgM Non-Reactive (Non-Reactive); Hepatitis B Core IgM Non-Reactive (Non-Reactive); Hepatitis B Surface Antigen Non-Reactive (Non-Reactive); Hepatitis C IgG Antibody Non-Reactive (Non-Reactive)
[2019-10-17 06:58] LABS: HIV 2 AB Non-Reactive (Non-Reactive); HIV AB P24 Non-Reactive (Non-Reactive); HIV P24 AG Non-Reactive (Non-Reactive)
[2019-10-18 05:58] LABS: Herpes simplex I and/or II IgM 0.81 INDEX (<=0.90); Herpes simplex IgG I Ab 16.5 (< or = 0.90); Herpes simplex IgG II Ab 0.39 (< or = 0.90)
[2019-10-18 09:16] LABS: C. trachomatis,PCR Negative (Neg,Equiv); Chlamydia trachomatis Source Urine; N. gonorrhoeae,PCR Negative (Neg,Equiv); Neisseria Source Urine
== END | disposition home or self-care (01) ==
LOC: LABWHC1 14:10
PROVIDERS: ATTEND Internal Medicine
DX: Z13.9 Encounter for screening, unspecified (principal); Z20.2 Contact with and (suspected) exposure to infections with a predominantly sexual mode of transmission
CPT/HCPCS: 36415; 80074; 86694; 86695; 86696; 86780; 87390; 87491; 87591; 87661

== ENCOUNTER 2021-02-08 16:01 | Emergency (ER) | payer MEDICARE ==
--- NOTE | 2021-02-08 17:26 | XR ---
EXAMINATION TYPE: XR tibia fibula LT DATE OF EXAM: 02/08/2021 CLINICAL HISTORY: Pain after trauma TECHNIQUE: Two views of the left leg are obtained. COMPARISON: None. FINDINGS: There is no acute fracture or dislocation seen in the left tibia or fibula. The left knee and ankle joints appear within normal limits. The overlying soft tissue appears unremarkable. Ather osclerotic calcifications of the vessels. IMPRESSION: There is no acute fracture or dislocation seen in the left tibia or fibula.
[2021-02-08] MEDS ORDERED: Acetaminophen-Codeine 300-30mg TAB PO STA (17:46)
[2021-02-08] MEDS ORDERED: ONDANSETRON ODT 4 MG TAB PO STA (17:46)
[2021-02-08] MEDS ORDERED: BACITRACIN OINT 1 EACH PACKET TOPICAL ONE (17:47)
--- NOTE | 2021-02-08 18:33 | ED ---
General Adult HPI - General Chief complaint: Extremity Injury, Lower Stated complaint: lt leg injury Time Seen by Provider: 02/08/21 17:27 Source: patient, family Mode of arrival: wheelchair Limitations: no limitations - History of Present Illness Initial comments: 51-year-old female presents to the emergency department with injury to the left lower leg onset this afternoon. States she was moving a piece of heavy oak chair that dropped on her left lower leg. Patient complains of pain with ambulation and palpation. Denies numbness or tingling in the lower extremities. States she applied ice to the injured area prior to arrival and attempted to gently clean the abrasion. Denies any additional injuries. - Related Data Home Medications Medication Instructions Recorded Confirmed Albuterol Sulfate [Proair Hfa] 1 - 2 puff INHALATION RT-Q6H PRN 01/10/15 01/17/17 Budesonide/Formoterol Fumarate 2 puff INHALATION RT-BID 01/10/15 01/17/17 [Symbicort 160-4.5 Mcg Inhaler] Omeprazole [PriLOSEC] 20 mg PO DAILY PRN 01/10/15 01/17/17 Albuterol Nebulized [Ventolin 2.5 mg INHALATION RT-BID PRN 11/17/16 01/17/17 Nebulized] Cetirizine HCl [Zyrtec] 10 mg PO DAILY PRN 01/17/17 01/17/17 Ranitidine HCl [Zantac] 150 mg PO BID PRN 01/17/17 01/17/17 Previous Rx's Medication Instructions Recorded Ciprofloxacin HCl [Cipro] 500 mg PO Q12HR 7 Days tablet 01/17/17 Phenazopyridine [Pyridium] 100 mg PO TID #6 tablet 01/17/17 Allergies Allergy/AdvReac Type Severity Reaction Status Date / Time metronidazole [From Flagyl] Allergy Rash/Hives Verified 02/08/21 16:37 amlodipine AdvReac Rapid Verified 02/08/21 16:37 Heart Rate lorazepam [From Ativan] AdvReac Suicidal Verified 02/08/21 16:37 Thoughts Review of Systems ROS Statement: Those systems with pertinent positive or pertinent negative responses have been documented in the HPI. ROS Other: All systems not noted in ROS Statement are negative. Past Medical History Past Medical History: Asthma, Hypertension History of Any Multi-Drug Resistant Organisms: None Reported Past Surgical History: Orthopedic Surgery Additional Past Surgical History / Comment(s): nose, hand and vaginal Past Psychological History: Anxiety Smoking Status: Current every day smoker Past Alcohol Use History: None Reported Past Drug Use History: None Reported General Exam Limitations: no limitations General appearance: alert, in no apparent distress Respiratory exam: Present: normal lung sounds bilaterally. Absent: respiratory distress, wheezes, rales, rhonchi, stridor Cardiovascular Exam: Present: regular rate, normal rhythm, normal heart sounds. Absent: systolic murmur, diastolic murmur, rubs, gallop, clicks Left Knee exam: Present: normal inspection, full ROM. Absent: tenderness, swelling, abrasion Lower Leg exam: Present: tenderness (Pretibial tenderness anterior left lower.), swelling (Mild edema noted around abrasion), abrasion (Abrasion to the lower portion of the anterolateral aspect of the left leg; ) Ankle exam: Present: normal inspection, full ROM. Absent: tenderness, swelling, abrasion, deformity Foot/Toe exam: Present: normal inspection, full ROM. Absent: tenderness, swelling Neurovascular tendon exam: Present: no vascular compromise. Absent: pulse deficit, abnormal cap refill, motor deficit, sensory deficit Back exam: Present: normal inspection. Absent: paraspinal tenderness, vertebral tenderness Neurological exam: Present: alert, oriented X3, CN II-XII intact Psychiatric exam: Present: normal affect, normal mood Skin exam: Present: warm, dry, intact, normal color. Absent: rash Medical Decision Making - Medical Decision Making 51-year-old female is evaluated for injury to the left lower leg sustained moving a heavy oak piece of furniture. Physical exam reveals 2 cm abrasion on the anterolateral surface of the left lower leg proximal to the lateral malleolus. Pretibial tenderness noted upon palpation with mild edema around abrasion. X-ray was obtained with no acute processes found. Patient was given oral Zofran due to mild nausea and a Tylenol No. 3 for pain with improvement in symptoms. Wound was cleansed and dressed. Wound care was reviewed with patient, including signs and symptoms of infection. Instructed to take Tylenol or Motrin for pain, also suggested ice application. Patient was instructed to follow-up with her primary care provider for recheck in 1-2 days. Return parameters were discussed in detail. Patient verbalizes understanding and agrees with this plan. This patient's case was discussed with my attending Dr. Ferrer. - Radiology Data Radiology results: report reviewed, image reviewed X-ray of the left tibia and fibula was obtained. Report was reviewed in verity. Impression per Dr. Barcenas as no acute fracture or dislocation seen in the tibia or fibula. Disposition Clinical Impression: Abrasion of leg, left, Contusion of left lower leg Disposition: HOME SELF-CARE Condition: Stable Instructions (If sedation given, give patient instructions): Abrasion (ED), Leg Pain (ED) Additional Instructions: Keep wound clean and dry. Change dressing twice daily. May take Tylenol or Motrin for discomfort. Monitor for signs of infection. Follow-up with primary care provider for recheck in the next 1-2 days. Is patient prescribed a controlled substance at d/c from ED?: No Referrals: Antonina Chapin MD [Primary Care Provider] - 1-2 days Time of Disposition: 18:48
== END 2021-02-08 18:53 | disposition home or self-care (01) ==
LOC: EC 16:01
DX: S80.12XA Contusion of left lower leg, initial encounter (principal); I10 Essential (primary) hypertension; J45.909 Unspecified asthma, uncomplicated; F41.9 Anxiety disorder, unspecified; F17.200 Nicotine dependence, unspecified, uncomplicated; Z88.1 Allergy status to other antibiotic agents; W20.8XXA Other cause of strike by thrown, projected or falling object, initial encounter
CPT/HCPCS: 99284

== ENCOUNTER → 2021-06-06 | Outpatient (CLI) | payer MEDICARE, OTHER ==
[2021-06-06 22:46] LABS: HCT 38.8 % (37.2-46.3); HGB 12.3 g/dL (12.0-15.0); MCH 29.8 pg (27.0-32.0); MCHC 31.7 g/dL (32.0-37.0); MCV 93.9 fL (80.0-97.0); Mean Platelet Volume 11.2 fL (9.5-12.2); NRBC Per 100 WBC 0 /100 WBCS (0.0-0.0); Platelet Count 344 X 10*3/uL (140-440); RBC 4.13 X 10*6/uL (4.10-5.20); RDW 12.8 % (11.5-14.5); WBC 11.54 X 10*3/uL (4.50-10.00)
[2021-06-06 23:08] LABS: African American GFR (CKD) 115.3 (60.0-200.0); Albumin 4.3 g/dL (3.8-4.9); Albumin/Globulin Ratio 1.39 (1.60-3.17); BUN/Creat Ratio 17.25 Ratio (12.00-20.00); Blood Urea Nitrogen 12.3 mg/dL (9.0-27.0); Calcium 9.5 mg/dL (8.7-10.3); Carbon Dioxide 22.3 mmol/L (20.0-27.5); Globulin 3.1 g/dL (1.6-3.3); Non-African American GFR(CKD) 99.5 (60.0-200.0); Potassium 3.6 mmol/L (3.5-5.5); T4, Free (Free Thyroxine) 1.59 ng/dL (0.800-1.800); Total Bilirubin 0.4 mg/dL (0.30-1.20); Total Protein 7.4 g/dL (6.2-8.2)
== END | disposition home or self-care (01) ==
LOC: LABWHC1 15:57
PROVIDERS: ATTEND Internal Medicine
DX: R11.0 Nausea (principal); R10.9 Unspecified abdominal pain
CPT/HCPCS: 36415; 80053; 84439; 84443; 85027

== ENCOUNTER → 2021-06-19 | Outpatient (CLI) | payer MEDICARE, OTHER ==
--- NOTE | 2021-06-19 16:03 | US ---
EXAMINATION TYPE: US abdomen comp/pelvis limited DATE OF EXAM: 06/19/2021 COMPARISON: CLINICAL HISTORY: R31.9 HEMATURIA, UNSPECIFIED. Microscopic hematuria. EXAM MEASUREMENTS: Liver Length: 16.8 cm Gallbladder Wall: 0.2 cm CBD: 0.3 cm Spleen: 8.7 cm Right Kidney: 11.4 x 5.6 x 5.1 cm Left Kidney: 10.8 x 5.3 x 6.0 cm Pancreas: wnl Liver: wnl Gallbladder: Sludge visualized CBD: wnl Spleen: wnl Right Kidney: No hydronephrosis or masses seen Left Kidney: No hydronephrosis or masses seen Upper IVC: wnl Abd Aorta: Distal portion not visualized due to overlying bowel gas Bladder: distended, anechoic Bilateral Jets Seen IMPRESSION: 1. Sludge within the gallbladder. 2. Abdomen ultrasound is otherwise unremarkable
== END | disposition home or self-care (01) ==
LOC: RADUSWWP 14:58
PROVIDERS: ATTEND Internal Medicine
DX: K82.8 Other specified diseases of gallbladder (principal)
CPT/HCPCS: 76700; 76857

== ENCOUNTER 2021-08-12 17:13 | Inpatient (IN) | payer MEDICARE, OTHER ==
[2021-08-12 18:15] VITALS: TEMP 96.5
[2021-08-12] MEDS ORDERED: ASPIRIN 81 MG PO STA (18:41)
[2021-08-12] MEDS ORDERED: SODIUM CHLORIDE 0.9% 1,000 ML IV STA (18:42)
--- NOTE | 2021-08-12 18:45 | ED ---
General Adult HPI - General Source: patient, RN notes reviewed Mode of arrival: ambulatory <GabbieDeb - Last Filed: 08/12/21 19:26> <Shubham Kaminski - Last Filed: 08/12/21 19:33> - General Chief complaint: Abdominal Pain Stated complaint: Back Pain Time Seen by Provider: 08/12/21 18:15 - History of Present Illness Initial comments: 51-year-old female presents to the emergency department for evaluation of multiple complaints. Patient states she has worsening heartburn, onset yesterday. States she has known gallbladder disease and complains of right- sided abdominal pain accompanied by pain between her shoulder blades and radiating to the right side of her neck. Also reports ongoing diarrhea and loose stool. Patient states she is feeling very anxious and has numbness in her hands and feet. Patient complains of mild nausea as well. (Deb Cartwright) Patient is a pleasant 51-year-old female presenting to the emergency department several complaints. Patient did sign in as abdominal pain. Patient states she has been having diarrhea for several weeks. Patient feels fatigued and weak. Patient has been having gallbladder problems as well. Patient started with indigestion in her chest yesterday. There is some radiation towards the back. Patient is right foot feels numb however no weakness. No confusion. (Shubham Kaminski) - Related Data Home Medications Medication Instructions Recorded Confirmed Albuterol Sulfate [Proair Hfa] 1 - 2 puff INHALATION RT-Q6H PRN 01/10/15 08/12/21 Budesonide/Formoterol Fumarate 1 - 2 puff INHALATION RT-BID 01/10/15 08/12/21 [Symbicort 160-4.5 Mcg Inhaler] Omeprazole [PriLOSEC] 20 mg PO BID PRN 01/10/15 08/12/21 Albuterol Nebulized [Ventolin 2.5 mg INHALATION RT-Q6H PRN 11/17/16 08/12/21 Nebulized] Cetirizine HCl [Zyrtec] 10 mg PO DAILY PRN 01/17/17 08/12/21 Acetaminophen/Diphenhydramine 2 tab PO HS PRN 08/12/21 08/12/21 [Tylenol PM 500-25mg] Allergies Allergy/AdvReac Type Severity Reaction Status Date / Time alprazolam [From Xanax] Allergy Unknown Verified 08/12/21 19:10 candesartan Allergy Unknown Verified 08/12/21 19:10 clonidine Allergy Unknown Verified 08/12/21 19:10 lisinopril Allergy Unknown Verified 08/12/21 19:10 metronidazole [From Flagyl] Allergy Rash/Hives Verified 08/12/21 19:10 olmesartan [From Benicar] Allergy Unknown Verified 08/12/21 19:10 Sulfa (Sulfonamide Allergy Unknown Verified 08/12/21 19:10 Antibiotics) zolpidem [From Ambien] Allergy Unknown Verified 08/12/21 19:10 amlodipine AdvReac Rapid Verified 08/12/21 19:10 Heart Rate lorazepam [From Ativan] AdvReac Suicidal Verified 08/12/21 19:10 Thoughts cilexetil Allergy Unknown Uncoded 08/12/21 17:56 Review of Systems ROS Other: All systems not noted in ROS Statement are negative. <Deb Cartwright - Last Filed: 08/12/21 19:26> ROS Other: All systems not noted in ROS Statement are negative. Constitutional: Denies: fever Eyes: Denies: eye pain ENT: Denies: ear pain Respiratory: Reports: dyspnea. Denies: cough Cardiovascular: Reports: chest pain Endocrine: Reports: fatigue Gastrointestinal: Reports: abdominal pain, diarrhea Genitourinary: Denies: dysuria Musculoskeletal: Reports: back pain Skin: Denies: rash Neurological: Reports: numbness. Denies: weakness <Shubham Kaminski - Last Filed: 08/12/21 19:33> ROS Statement: Those systems with pertinent positive or pertinent negative responses have been documented in the HPI. Past Medical History Past Medical History: Asthma, COPD, Hypertension History of Any Multi-Drug Resistant Organisms: None Reported Past Surgical History: Orthopedic Surgery Additional Past Surgical History / Comment(s): nose, hand and vaginal Past Psychological History: Anxiety Smoking Status: Current every day smoker Past Alcohol Use History: None Reported Past Drug Use History: None Reported <Deb Cartwright - Last Filed: 08/12/21 19:26> General Exam General appearance: alert, anxious, other (This is an anxious, ill-appearing female who presents to the emergency department with an initial temperature of 96.5, pulse 96, respirations 20, blood pressure 81/49, pulse ox 99% on room air.) ENT exam: Present: mucous membranes dry Neck exam: Present: normal inspection Respiratory exam: Present: normal lung sounds bilaterally. Absent: respiratory distress, wheezes, rales, rhonchi, stridor, chest wall tenderness Cardiovascular Exam: Present: regular rate, normal rhythm, normal heart sounds GI/Abdominal exam: Present: soft, guarding. Absent: distended Extremities exam: Present: normal inspection, normal capillary refill. Absent: pedal edema Neurological exam: Present: alert, oriented X3 Psychiatric exam: Present: anxious Skin exam: Present: warm, dry, intact, pallor <Deb Cartwright - Last Filed: 08/12/21 19:26> Limitations: no limitations General appearance: alert Head exam: Present: atraumatic Eye exam: Present: normal appearance Neck exam: Present: normal inspection Respiratory exam: Present: normal lung sounds bilaterally Cardiovascular Exam: Present: regular rate, normal rhythm Expanded Peripheral pulses: 1+: Radial (R), Radial (L), Posterior Tibialis (R), Posterior Tibialis (L), Dorsalis Pedis (R), Dorsalis Pedis (L) GI/Abdominal exam: Present: soft. Absent: distended, tenderness Extremities exam: Present: normal inspection. Absent: pedal edema, calf tenderness Neurological exam: Present: alert Expanded Neurological exam: Present: protecting the airway Speech: Present: fluid speech Motor strength exam: RUE: 5, LUE: 5, RLE: 5, LLE: 5 Eye Response: (4) open spontaneously Motor Response: (6) obeys commands Verbal Response: (5) oriented Psychiatric exam: Present: anxious Skin exam: Present: other (Mild grayish discoloration of the) <Shubham Kaminski - Last Filed: 08/12/21 19:33> Course <Shubham Kaminski - Last Filed: 08/12/21 19:33> Vital Signs 08/12/21 17:49 Temperature 96.5 F L Pulse Rate 96 Respiratory 20 Rate O2 Sat by Pulse 99 Oximetry - Reevaluation(s) Reevaluation #1: 08/12/21 18:51 Discussed with practitioner regarding EKG and this was reviewed. Patient reevaluated by myself, Dr. Kaminski. Patient has several complaints including diarrhea for several months. Patient states she has been having severe indigestion in her chest since yesterday. There is radiation towards the back. Patient states right leg also feels numb. Patient also is complaining of abdominal discomfort. Patient does have slight forbes discoloration to her skin with hypotension. Case was discussed with Dr. Corea with cardiology who also has some concerns regarding aorta and agrees to stat computed tomography scan of the aorta. Family updated. CT was notified and patient is currently in CT. Dr. Corea plans on taking patient to the [facility] CT does not show acute abnormality. Patient order fluid bolus. EKG reviewed with significant ST elevation in V3 through V6. 08/12/21 19:13 Dr. Corea is present and evaluating patient. Case was also discussed with Dr. vaughn, who will admit covering Dr. chapin (Shubham Kaminski) Medical Decision Making - Lab Data Result diagrams: 08/12/21 18:42 08/12/21 18:42 - EKG Data EKG shows normal: sinus rhythm Rate: normal - Radiology Data Radiology results: report reviewed, image reviewed <Deb Cartwright - Last Filed: 08/12/21 19:26> - Lab Data Result diagrams: 08/12/21 18:42 08/12/21 18:42 - Radiology Data Radiology results: image reviewed (Chest x-ray shows no acute process. CT angios shows no aortic dissection or aneurysm. Extensive atherosclerotic vascular disease. 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 Upon exam, patient is ill-appearing and anxious. Her complaints of worsening heartburn, pain between her shoulder blades, and neck/jaw discomfort, along with EKG showing ST elevation in V leads 4-6, are concerning for acute DC. STEMI- alert was paged. Chest x-ray was unremarkable. Laboratory studies pending. Patient was hypotensive initially. Given 4 baby aspirin and a liter of IV fluid. CTA aorta pending. Cardiology present. Patient to laboratory coordinator for further evaluation and treatment. Attending: Gordy. (Deb Cartwright) - Lab Data Lab Results 04/26/22 04/26/22 04/26/22 Range/Units 18:42 18:42 18:42 WBC 17.4 H (3.8-10.6) k/uL RBC 4.13 (3.80-5.40) m/uL Hgb 12.4 (11.4-16.0) gm/dL Hct 39.6 (34.0-46.0) % MCV 96.0 (80.0-100.0) fL MCH 30.0 (25.0-35.0) pg MCHC 31.2 (31.0-37.0) g/dL RDW 13.1 (11.5-15.5) % Plt Count 302 (150-450) k/uL MPV 8.1 Neutrophils % 90 % Lymphocytes % 6 % Monocytes % 3 % Eosinophils % 1 % Basophils % 0 % Neutrophils # 15.6 H (1.3-7.7) k/uL Lymphocytes # 1.1 (1.0-4.8) k/uL Monocytes # 0.5 (0-1.0) k/uL Eosinophils # 0.1 (0-0.7) k/uL Basophils # 0.1 (0-0.2) k/uL Hypochromasia Slight Sodium 136 L (137-145) mmol/L Potassium 4.5 (3.5-5.1) mmol/L Chloride 107 (98-107) mmol/L Carbon Dioxide 18 L (22-30) mmol/L Anion Gap 11 mmol/L BUN 17 (7-17) mg/dL Creatinine 1.37 H (0.52-1.04) mg/dL Est GFR (CKD-EPI)AfAm 52 (>60 ml/min/1.73 sqM) Est GFR (CKD-EPI)NonAf 46 (>60 ml/min/1.73 sqM) Glucose 187 H (74-99) mg/dL Calcium 8.7 (8.4-10.2) mg/dL Magnesium 2.1 (1.6-2.3) mg/dL Total Bilirubin 1.4 H (0.2-1.3) mg/dL AST 82 H (14-36) U/L ALT 47 H (4-34) U/L Alkaline Phosphatase 95 (38-126) U/L Troponin I 3.760 H* (0.000-0.034) ng/mL Total Protein 6.4 (6.3-8.2) g/dL Albumin 3.7 (3.5-5.0) g/dL Amylase 41 (30-110) U/L Lipase 33 (23-300) U/L - EKG Data EKG Comments: EKG was obtained at 1834. Ventricular rate 94, [place] interval 118, QRS duration 141, QT/QTc 417/469. Shows sinus rhythm with short [place] interval. Possible left atrial enlargement. Intraventricular conduction delay. Anterolateral myocardial infarction, probably recent. Acute DC. (Deb Cartwright) - Radiology Data One view portable chest x-ray was obtained. Report was reviewed in its entirety. Impression per Dr. Felipe is normal chest. No change. (Deb Cartwright) Critical Care Time Critical Care Time: Yes Total Critical Care Time: 32 <Shubham Kaminski - Last Filed: 08/12/21 19:33> Disposition Decision Date: 08/12/21 Decision Time: 19:15 <Deb Cartwright - Last Filed: 08/12/21 19:26> Is patient prescribed a controlled substance at d/c from ED?: No Time of Disposition: 19:15 <Shubham Kaminski - Last Filed: 08/12/21 19:33> Clinical Impression: STEMI (ST elevation myocardial infarction) Disposition: ADMITTED IP TO THIS HOSP Condition: Critical Referrals: Antonina Chapin MD [Primary Care Provider] - 1-2 days
[2021-08-12 18:59] LABS: Basophils # (A) 0.1 k/uL (0-0.2); Basophils % (A) 0 %; Eosinophils # (A) 0.1 k/uL (0-0.7); Eosinophils % (A) 1 %; HCT 39.6 % (34.0-46.0); HGB 12.4 gm/dL (11.4-16.0); Hypochromasia Slight; Lymphocytes # (A) 1.1 k/uL (1.0-4.8); Lymphocytes % (A) 6 %; MCHC 31.2 g/dL (31.0-37.0); Mean Platelet Volume 8.1; Monocytes # (A) 0.5 k/uL (0-1.0); Monocytes % (A) 3 %; Neutrophils # (A) 15.6 k/uL (1.3-7.7); Neutrophils % (A) 90 %; Platelet Count 302 k/uL (150-450); RBC 4.13 m/uL (3.80-5.40); RDW 13.1 % (11.5-15.5); WBC 17.4 k/uL (3.8-10.6)
[2021-08-12 19:00] LABS: Potassium 4.5 mmol/L (3.5-5.1)
[2021-08-12 19:01] LABS: Albumin 3.7 g/dL (3.5-5.0); Calcium 8.7 mg/dL (8.4-10.2); Magnesium 2.1 mg/dL (1.6-2.3); Total Bilirubin 1.4 mg/dL (0.2-1.3); Total Protein 6.4 g/dL (6.3-8.2)
--- NOTE | 2021-08-12 19:10 | XR ---
EXAMINATION TYPE: XR chest 1V portable DATE OF EXAM: 08/12/2021 COMPARISON: NONE HISTORY: Chest pain TECHNIQUE: Single view FINDINGS: Heart and mediastinum are normal. Lungs are clear. Diaphragm is normal. There is right side chest lead. Pulmonary vascularity is normal. IMPRESSION: Normal chest. No change.
[2021-08-12] MEDS ORDERED: VERAPAMIL 2.5 MG/ML 2 ML AMP ONE (19:12)
[2021-08-12] MEDS ORDERED: LIDOCAINE 1% INJ 10MG/ML (20 ML MDV) SQ ONE (19:30)
--- NOTE | 2021-08-12 19:31 | CT ---
EXAMINATION TYPE: CT angio thor/abd pel aorta DATE OF EXAM: 08/12/2021 COMPARISON: None HISTORY: Chest and upper abdominal pain. CT DLP: 1459.1 mGycm Automated exposure control for dose reduction was used. CONTRAST: Performed with IV Contrast, patient injected with 100ml mL of Isovue 370. Images obtained from the thoracic inlet to the floor the pelvis without and subsequently with IV cont rast Isovue 100 mL. There are 3-D post processed images. There is mild pulmonary emphysema. No pleural effusion or pneumothorax. There is atherosclerotic vasc ular calcification. There is coronary artery dense calcification. The ascending aorta measures 3.5 cm . No aneurysm or dissection. There is some mild plaque in the descending thoracic aorta. No evidence of filling defect in the pulmonary arteries. There is some mild reticular density left lung base consistent with scarring and subsegmental atelect asis. There is arterial flow in the abdominal aorta with variable plaque formation. There is arterial flow in the celiac artery and superior mesenteric artery. There is arterial flow in the renal arteries. Th ere is subtotal occlusion of the right common iliac artery. There is extensive plaque in the right il iac artery. There is arterial flow in the external and internal iliac arteries bilaterally. The thoracic and lumbar vertebra appear intact. No compression fracture. Sternum is intact. Bony pelv is is intact. Hip joints are intact. Uterus is anteverted. Urinary bladder is almost empty. No pelvic mass. No free fluid in the pelvis. There is no mesenteric edema. No ascites or free air. Kidneys show satisfactory contrast opacificatio n. There is no hydronephrosis. Liver spleen and stomach pancreas appear intact. The bile ducts are no t dilated. Gallbladder appears normal. Appendix appears normal. IMPRESSION: Extensive atherosclerotic vascular disease. No arterial aneurysm or dissection. 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 Plaque in the a bdominal aorta with up to 30% luminal narrowing of the abdominal aorta below the renal arteries. Minimal scarring and subsegmental atelectasis left lung base.
[2021-08-12] MEDS ORDERED: HEPARIN SODIUM 1,000 UN/ML (10ML VL) ONE (19:42)
[2021-08-12] MEDS ORDERED: NOREPINEPHRINE 4 MG in SODIUM CHLORIDE 0.9% 250 ML IV ONE (19:43)
[2021-08-12] MEDS ORDERED: PRASUGREL 10 MG TAB ONE (19:48)
[2021-08-12] MEDS ORDERED: PRASUGREL 10 MG TAB PO ONE (19:53)
[2021-08-12] MEDS ORDERED: IOPAMIDOL-370 125ML BTL INJ ONE ×2 (20:00→20:36)
[2021-08-12] MEDS ORDERED: SODIUM BICARB 8.4% 50 ML SYR (1 MEQ/ML) ONE (20:44)
[2021-08-12] MEDS ORDERED: EPINEPHrine 10 ML SYRINGE (0.1 MG/ML) ONE (20:44)
[2021-08-12] MEDS ORDERED: ATROPINE SULFATE 0.1 MG/ML 10ML SYRINGE ONE (20:44)
--- NOTE | 2021-08-12 21:33 | P.CRDCN ---
History of Present Illness Consult date: 08/12/21 History of present illness: History of Present Illness: The patient is a 51 female with a history of chronic tobacco use, hyperlipidemia who has not been feeling well for a months presented to the emergency room with symptoms of abdominal pain numbness in the right leg nausea and diarrhea. Anxious. Initial evaluation in the emergency room +2 word her abdominal sympt oms subsequently an EKG was done at 18:[address] elevation anteriorly, because of her discomfort in the leg and discomfort to the back CT scan of her thoracic aorta that showed subtotal occlusion of the right iliac artery with severe atherosclerotic changes. I examined the patient emergency room she was complaining predominantly of abdominal pain cramping and nausea and vomiting she had mild chest discomfort according to her she has not been feeling well for about a months. She has no prior cardiac history. She denies any peripheral edema. She denies any PND or orthopnea. She was hypotensive in the emergency room with a blood pressure in the 80s, in sinus mechanism. Review of Systems: Respiratory: She has chronic tobacco use and chronic dyspnea GI: She has been complaining of nausea, vomiting and diarrhea in addition to severe abdominal discomfort : No hematuria or dysuria. Nervous System: No stroke or seizure. Physical Examination: 51-year-old female anxious in pain, heart rate in the 90s with a blood pressure systolic in the 80s Head: Normocephalic. Eyes: Sclerae nonicteric. Neck: Good carotid upstroke, no bruit, no jugular venous distention. Lungs: Decreased breath sounds bilaterally Heart: Regular rate and rhythm, S1-S2, no S3, no rub. No murmur. Abdomen: Soft , mild tenderness, positive bowel sounds no organomegaly. Extremities: No edema, decreased distal pulses on the left and absence on the right Labs: EKG shows sinus mechanism with ST elevation in lead V2 through V6 with QS pattern as well as ST elevation in 1 and aVL consistent with anterolateral wall myocardial infarction probably subacute Impression: 1. Subacute anterolateral wall myocardial infarction with evidence of cardiogenic shock 2. Subtotally occluded right iliac artery 3. History of chronic tobacco use 4. Possible embolic phenomenon to the abdomen with the abdominal pain. If the patient had her myocardial infarction a few days ago it is possible that she has apical thrombus with multiple embolization 5. History of hyperlipidemia Plan: 1. I discussed the findings with the patient and her I have recommended to proceed with emergent cardiac catheterization. The risk and the complication were discussed with them. The prognosis is guarded 2. Thank you for this consult we will follow with you Past Medical History Past Medical History: Asthma, COPD, Hypertension History of Any Multi-Drug Resistant Organisms: None Reported Past Surgical History: Orthopedic Surgery Additional Past Surgical History / Comment(s): nose, hand and vaginal Past Psychological History: Anxiety Smoking Status: Current every day smoker Past Alcohol Use History: None Reported Past Drug Use History: None Reported Medications and Allergies Home Medications Medication Instructions Recorded Confirmed Type Albuterol Sulfate [Proair Hfa] 1 - 2 puff INHALATION RT-Q6H PRN 01/10/15 08/12/21 History Budesonide/Formoterol Fumarate 1 - 2 puff INHALATION RT-BID 01/10/15 08/12/21 History [Symbicort 160-4.5 Mcg Inhaler] Omeprazole [PriLOSEC] 20 mg PO BID PRN 01/10/15 08/12/21 History Albuterol Nebulized [Ventolin 2.5 mg INHALATION RT-Q6H PRN 11/17/16 08/12/21 History Nebulized] Cetirizine HCl [Zyrtec] 10 mg PO DAILY PRN 01/17/17 08/12/21 History Acetaminophen/Diphenhydramine 2 tab PO HS PRN 08/12/21 08/12/21 History [Tylenol PM 500-25mg] Allergies Allergy/AdvReac Type Severity Reaction Status Date / Time alprazolam [From Xanax] Allergy Unknown Verified 08/12/21 19:10 candesartan Allergy Unknown Verified 08/12/21 19:10 clonidine Allergy Unknown Verified 08/12/21 19:10 lisinopril Allergy Unknown Verified 08/12/21 19:10 metronidazole [From Flagyl] Allergy Rash/Hives Verified 08/12/21 19:10 olmesartan [From Benicar] Allergy Unknown Verified 08/12/21 19:10 Sulfa (Sulfonamide Allergy Unknown Verified 08/12/21 19:10 Antibiotics) zolpidem [From Ambien] Allergy Unknown Verified 08/12/21 19:10 amlodipine AdvReac Rapid Verified 08/12/21 19:10 Heart Rate lorazepam [From Ativan] AdvReac Suicidal Verified 08/12/21 19:10 Thoughts cilexetil Allergy Unknown Uncoded 08/12/21 17:56 Physical Exam Vitals: Vital Signs Temp Pulse Resp Pulse Ox 08/12/21 17:49 96.5 F L 96 20 99 Intake and Output 08/12/21 08/12/21 08/12/21 06:59 14:59 22:59 Other: Weight 72.575 kg Results 08/12/21 18:42 08/12/21 18:42 Cardiac Enzymes 08/12/21 08/12/21 Range/Units 18:42 18:42 AST 82 H (14-36) U/L Troponin I 3.760 H* (0.000-0.034) ng/mL CBC 08/12/21 Range/Units 18:42 WBC 17.4 H (3.8-10.6) k/uL RBC 4.13 (3.80-5.40) m/uL Hgb 12.4 (11.4-16.0) gm/dL Hct 39.6 (34.0-46.0) % Plt Count 302 (150-450) k/uL Comprehensive Metabolic Panel 08/12/21 Range/Units 18:42 Sodium 136 L (137-145) mmol/L Potassium 4.5 (3.5-5.1) mmol/L Chloride 107 (98-107) mmol/L Carbon Dioxide 18 L (22-30) mmol/L BUN 17 (7-17) mg/dL Creatinine 1.37 H (0.52-1.04) mg/dL Glucose 187 H (74-99) mg/dL Calcium 8.7 (8.4-10.2) mg/dL AST 82 H (14-36) U/L ALT 47 H (4-34) U/L Alkaline Phosphatase 95 (38-126) U/L Total Protein 6.4 (6.3-8.2) g/dL Albumin 3.7 (3.5-5.0) g/dL Intake and Output 08/12/21 08/12/21 08/12/21 06:59 14:59 22:59 Other: Weight 72.575 kg Patient Weight 08/13/21 06:59 Weight 72.575 kg 08/12/21 18:42 08/12/21 18:42
--- NOTE | 2021-08-12 21:43 | P.CARDCATH ---
Date of Procedure: 08/12/21 Description of Procedure: CARDIAC CATHETERIZATION REPORT CLINICAL HISTORY: The patient is a 51-year-old female who presents with abdominal pain, nausea and vomiting and diarrhea with right leg discomfort was found to have ST elevation in the anterolateral leads, recommendations were made regarding cardiac catheterization, the procedure as well as the risks and complication were discussed with the patient and her family. PROCEDURE: The patient was brought to the cardiac catheterization lab in a fasting, semi-sedated state after receiving Versed and Benadryl. The patient was prepped and draped in the conventional fashion. Using Xylocaine anesthesia, in the Seldinger technique, a 6 [place] sheath was introduced in the left femoral artery. Selective left coronary angiography was performed using 6-[place] 4 guiding catheter after obtaining images of the left angioplasty and stenting of the LAD was performed using a 0.014 balanced medium J-wire with a microcatheter after advancing the wire to the LAD a 2.5 x 12 mm Treck was advanced and multiple inflations were done at 8 jose m subsequently the balloon was removed and attempt to advance a 2.5 x 38 mm Xience meggan point were unsuccessful that stent was removed and a 2.5 x 23 mm Xience meggan point was deployed proximally and post dilated at 16 jose m, following that the balloon was reintroduced and inflations in the mid segment of the LAD was performed, after removing the balloon a 2.5 x 18 mm Xience meggan point was deployed and postdilated at 16 jose m in the midsegment and another 2.5 x 18 mm Xience meggan point stent was deployed between the first and the second stent and postdilated to 16 jose m after removing the balloon a 2.25 x 12 mm Treck balloon was advanced and multiple inflations in the mid and distal segment of the LAD were performed with buddhist of the flow and evidence of diffuse disease. At that time and because of the totally occluded first obtuse margin branch a 0.014 and a medium J-wire with advanced into the circumflex with attempt to recanalize the first obtuse margin branch at that time the patient became more hypotensive requiring CPR and intubation. She received CPR per ACLS and received epinephrine and bicarb injections without ability to restore blood pressure or heart rate. The patient was pronounced at 21: 08. At the beginning of the procedure patient received a total of 6000 intravenous heparin and oral loading dose of Effient. Her ACT was followed. She was on IV norepinephrine. SELECTIVE CORONARY ARTERIOGRAPHY: LEFT MAIN CORONARY ARTERY: This is a large size vessel, bifurcating into LAD and left circumflex, left main has a 50% plaque in the midsegment LEFT ANTERIOR DESCENDING CORONARY ARTERY: This vessel is totally occluded proximally LEFT CIRCUMFLEX CORONARY ARTERY: This vessel gives rise to a first obtuse marginal branch that is totally occluded, distally gives rise to what appears to be a small PDA, there is retrograde filling of the obtuse marginal branch RIGHT CORONARY ARTERY: Images of the right coronary artery were not performed LEFT VENTRICULOGRAM: Not performed HEMODYNAMICS: Not performed Angioplasty: Diffusely disease with multiple areas of stenosis and evidence of clots. CONCLUSION: Cardiogenic shock was totally occluded proximal LAD and obtuse marginal branch. It is possible that the patient sustained a myocardial infarction few days prior to admission and had embolic phenomenon to her lower extremities and could be due to the abdomen as well. In spite of recanalizing the LAD was inability to restore blood pressure and stabilize her hemodynamically. The patient sustained a cardiac arrest and did not achieve buddhist of her blood pressure and heart rate in spite of CPR. The was informed. Duration of procedure 99 minutes
[2021-08-13 01:26] VITALS: RESP 24
[2021-08-13 03:07] VITALS: BP 77/65; PULSE 83
--- NOTE | 2021-08-13 09:09 | P.PN ---
Progress Note - Text Progress Note Date: 08/13/21 called BETTYE LUCIA overhead from cardiac high density press laborer. patient was getting resuscitation with medications, CPR, Ambu bag ventilation. ZOHRA Laboy attempted to intubate but patient mouth opening was tight , and biting. so patient was given succinylcholine 100 mg to facilitate intubation. Patient was intubated using Mac 3 bladein in one attempt without any difficulty endotracheal tube intubation. An irregular tube placement confirmed with capnograph a color change, and auscultation. Tube secured, and continued ventilation as per resuscitation protocols.
== END 2021-08-12 23:58 | disposition expired | DRG 247 ==
LOC: EC 17:13 → 3SCARD 19:16 → 2SICU 20:09
PROVIDERS: ADMIT Internal Medicine; ATTEND Internal Medicine
PROC: 4A023N7 Measurement of Cardiac Sampling and Pressure, Left Heart, Percutaneous Approach (ICD-10-PCS; 2021-08-12)
PROC: B2111ZZ Fluoroscopy of Multiple Coronary Arteries using Low Osmolar Contrast (ICD-10-PCS; 2021-08-12)
PROC: 5A12012 Performance of Cardiac Output, Single, Manual (ICD-10-PCS; 2021-08-12)
PROC: 027036Z Dilation of Coronary Artery, One Artery with Three Drug-eluting Intraluminal Devices, Percutaneous Approach (ICD-10-PCS; principal; 2021-08-12 19:08)
PROC: 0BH17EZ Insertion of Endotracheal Airway into Trachea, Via Natural or Artificial Opening (ICD-10-PCS; 2021-08-12 19:08)
PROC: 3E043XZ Introduction of Vasopressor into Central Vein, Percutaneous Approach (ICD-10-PCS; 2021-08-12 19:08)
DX: I21.09 ST elevation (STEMI) myocardial infarction involving other coronary artery of anterior wall (principal); I74.5 Embolism and thrombosis of iliac artery; R57.0 Cardiogenic shock; I46.2 Cardiac arrest due to underlying cardiac condition; E78.5 Hyperlipidemia, unspecified; F17.210 Nicotine dependence, cigarettes, uncomplicated; J45.909 Unspecified asthma, uncomplicated; I95.9 Hypotension, unspecified; R19.7 Diarrhea, unspecified; R20.2 Paresthesia of skin; I10 Essential (primary) hypertension; I25.2 Old myocardial infarction; J44.9 Chronic obstructive pulmonary disease, unspecified; K82.9 Disease of gallbladder, unspecified; Z79.51 Long term (current) use of inhaled steroids; Z88.2 Allergy status to sulfonamides; Z88.8 Allergy status to other drugs, medicaments and biological substances; Z88.1 Allergy status to other antibiotic agents
CPT/HCPCS: 36415; 71045; 71275; 74174; 80053; 82150; 83690; 83735; 84484; 85025; 86850; 86900; 86901; 92950; 93005; 93454; 99291